=== PATIENT | male | born 2000 | race Two or more races ===

== ENCOUNTER 2023-04-17 17:56 | Inpatient (IN) | payer MEDICAID, OTHER ==
[~2023-04-17] VITALS: Ht 188 cm; Wt 134.7 kg
[2023-04-17 19:24] LABS: BASOPHILS % (AUTO) 0.4 % (0.0-2.0); EOSINOPHILS % (AUTO) 0.3 % (1.0-6.0); HEMATOCRIT 43.6 % (41-53); HEMOGLOBIN 14.8 g/dL (13.5-17.5); LYMPHOCYTES # (AUTO) 2.2 K/uL (1.0-4.8); LYMPHOCYTES % (AUTO) 26.7 % (22.0-44.0); MEAN CORPUSCULAR HEMOGLOBIN 30.7 pg (26.0-34.0); MEAN CORPUSCULAR VOLUME 91 fL (80-100); MONOCYTES # (AUTO) 0.5 K/uL (0.1-1.0); MONOCYTES % (AUTO) 5.8 % (2.0-9.0); NEUTROPHILS # (AUTO) 5.5 K/uL (1.8-7.7); NEUTROPHILS % (AUTO) 66.8 % (40.0-70.0); PLATELET COUNT (AUTO) 314 K/uL (150-450); RED BLOOD CELL COUNT(AUTO) 4.81 MIL/uL (4.50-5.90); WHITE BLOOD COUNT (AUTO) 8.3 K/uL (4.5-11.0)
[2023-04-17 19:34] LABS: ANION GAP 10 mmol/L (8-16); CALCIUM, TOTAL 8.9 mg/dL (8.8-10.5); CARBON DIOXIDE 25 mmol/L (22-29); CHLORIDE 100 mmol/L (98-107); CREATININE 0.76 mg/dL (0.60-1.30); GLOMERULAR FILTR. RATE CALC > 60 mL/min (>60); GLUCOSE,RANDOM 104 mg/dL (70-110); POTASSIUM 3.7 mmol/L (3.5-5.1); SODIUM SERUM 135 mmol/L (136-145); UREA NITROGEN, BLOOD 11 mg/dL (7-18)
[2023-04-17 19:40] LABS: ALANINE AMINOTRANSFERASE 115 U/L (12-78); ALBUMIN 4.2 g/dL (3.4-5.0); ALKALINE PHOSPHATASE 78 U/L (46-116); ASPARTATE AMINOTRANSFERASE 28 U/L (15-37); BILIRUBIN,TOTAL 0.2 mg/dL (0.1-1.0); TOTAL PROTEIN, SERUM 8.1 g/dL (6.4-8.2)
[2023-04-17] MEDS ORDERED: METO-408 PO (19:48)
[2023-04-17] MEDS ORDERED: AMLO-142 PO (19:48)
[2023-04-17] MEDS ORDERED: SIMV-46 PO (19:48)
[2023-04-17] MEDS ORDERED: PALI3TAB14 PO (19:48)
[2023-04-17] MEDS ORDERED: PALI39DI IM (19:48)
[2023-04-17 20:01] LABS: ALCOHOL, BLOOD (SERUM) < 3 mg/dL (0-10)
[2023-04-17 22:26] LABS: COVID AG,FIA SOURCE NASAL SWAB
[2023-04-17 22:46] LABS: SARS-COV2 (COVID) ANTIGEN,FIA Negative (Negative)
[2023-04-17] MEDS ORDERED: LORazepam 2 MG TABLET PO PRN (23:15)
[2023-04-17] MEDS ORDERED: HALOPERIDOL 5 MG TABLET PO PRN (23:15)
[2023-04-17] MEDS ORDERED: HALOPERIDOL 5 MG TABLET PO ONE (23:30)
[2023-04-17] MEDS ORDERED: LORazepam 2 MG TABLET PO ONE (23:30)
[2023-04-17] MEDS ORDERED: DiphenhydrAMINE HCL 25 MG CAPSULE PO ONE (23:30)
[2023-04-18 05:17] VITALS: BP 101/79; PULSE 79; RESP 18; TEMP 97.6; O2SAT 98
[2023-04-18] MEDS ORDERED: INFLUENZA VIRUS VACCINE QVS 2023-24 (6MO+)/PF 60 MCG/0.5 ML SYRINGE IM. ONE (06:15)
[2023-04-18] MEDS ORDERED: METOPROLOL SUCCINATE 25 MG ER TABLET PO SCH (09:00)
[2023-04-18] MEDS ORDERED: ACETAMINOPHEN 325 MG TABLET PO PRN (09:30)
[2023-04-18] MEDS ORDERED: NICOTINE 14 MG/24 HOUR PATCH TD PRN (09:30)
[2023-04-18] MEDS ORDERED: ONDANSETRON HCL 4 MG TABLET PO PRN (09:30)
[2023-04-18] MEDS ORDERED: GuaiFENesin/D-METHORPHAN [SUGAR-FREE] 200-20MG/10 ML SYRUP UDCUP PO PRN (09:30)
[2023-04-18] MEDS ORDERED: CloNIDine HCL 0.1 MG TABLET PO PRN (09:30)
[2023-04-18] MEDS ORDERED: DOCUSATE SODIUM 100 MG CAPSULE PO PRN (09:30)
[2023-04-18] MEDS ORDERED: LOPERAMIDE HCL 2 MG CAPSULE PO PRN (09:30)
[2023-04-18] MEDS ORDERED: PETROLATUM,WHITE 28 GM JELLY TP PRN (09:30)
[2023-04-18] MEDS ORDERED: ALBUTEROL SULFATE HFA 90 MCG/PUFF 8 GM INHALER IH PRN (09:30)
[2023-04-18] MEDS ORDERED: IBUPROFEN 400 MG TABLET PO PRN (09:30)
[2023-04-18] MEDS ORDERED: MAG HYDROX/ALUMINUM HYD/SIMETH ES 30 ML SUSPENSION UDCUP PO PRN (09:30)
[2023-04-18] MEDS ORDERED: MAGNESIUM HYDROXIDE SUSPENSION 30 ML UDCUP PO PRN (09:30)
[2023-04-18 14:20] LABS: APPEARANCE,URINE CLEAR (CLEAR); BILIRUBIN,URINE NEGATIVE (NEGATIVE); COLOR,URINE LIGHT YELLOW (YELLOW); GLUCOSE, URINE (UA) NEGATIVE (NEGATIVE); KETONES,URINE NEGATIVE (NEGATIVE); LEUKOCYTE ESTERASE ,URINE NEGATIVE (NEGATIVE); NITRATE,URINE NEGATIVE (NEGATIVE); OCCULT BLOOD,URINE NEGATIVE (NEGATIVE); PH,URINE 6.5 (5.0-8.0); PH,URINE DRUG SCREEN 6.5 (5.0-8.0); PROTEIN,URINE NEGATIVE (NEGATIVE); SPECIFIC GRAVITIY, URINE 1.026 (1.003-1.030); UROBILINOGEN,URINE <=1.0 mg/dL (<=1.0)
[2023-04-18 14:27] VITALS: BP 120/88; PULSE 83; RESP 18; TEMP 98.1; O2SAT 98
[2023-04-18 14:28] LABS: ALCOHOL, URINE DRUG SCREEN NEGATIVE (NEGATIVE); AMPHET/METH SCREEN,URINE NEGATIVE (NEGATIVE); BARBITURATE SCREEN, URINE NEGATIVE (NEGATIVE); BENZODIAZEPINES SCREEN,URINE NEGATIVE (NEGATIVE); CANNABINOID SCREEN,URINE NEGATIVE (NEGATIVE); COCAINE SCREEN,URINE NEGATIVE (NEGATIVE); METHADONE SCREEN, URINE NEGATIVE (NEGATIVE); OPIATE SCREEN,URINE NEGATIVE (NEGATIVE); PHENCYCLIDINE SCREEN,URINE NEGATIVE (NEGATIVE)
[2023-04-18] MEDS: PALIPERIDONE 3 MG ER TABLET PO SCH ×2 (15:30→15:32)
[2023-04-18] MEDS ORDERED: SEMA0.258 SQ (18:53)
[2023-04-18] MEDS ORDERED: CHOL25TA4 PO (18:53)
[2023-04-18] MEDS ORDERED: KETO120S13 TP (18:53)
[2023-04-18] MEDS ORDERED: PALI39DI IM (18:53)
[2023-04-18] MEDS ORDERED: PALI6TAB15 PO (18:53)
[2023-04-18] MEDS ORDERED: TACR30OI5 TP (18:53)
[2023-04-18] MEDS ORDERED: KETO15CR2 TP (18:53)
[2023-04-18] MEDS: SIMVASTATIN 40 MG TABLET PO SCH (20:57)
[2023-04-18] MEDS: ZOLPIDEM TARTRATE 10 MG TABLET PO PRN (20:57)
[2023-04-18] MEDS ORDERED: SIMVASTATIN 40 MG TABLET PO SCH (21:00)
[2023-04-18 22:36] VITALS: RESP 18
[2023-04-19 06:27] LABS: HEMOGLOBIN A1C 5.3 % (3.8-5.6)
[2023-04-19 07:15] LABS: CHOL/HDL RATIO 4.8 (4.2-7.3); THYROID STIMULATING HORMONE 1.12 uIU/mL (0.36-3.74)
[2023-04-19] MEDS: PALIPERIDONE 6 MG ER TABLET PO SCH (08:05)
[2023-04-19] MEDS: BENAZEPRIL HCL 20 MG TABLET PO SCH (08:05)
[2023-04-19] MEDS: AmLODIPine BESYLATE 10 MG TABLET PO SCH (08:05)
[2023-04-19 08:15] VITALS: BP 173/106; PULSE 95; RESP 18; TEMP 98; O2SAT 95
[2023-04-19] MEDS ORDERED: METOPROLOL SUCCINATE 25 MG ER TABLET PO SCH (09:00)
[2023-04-19 10:17] VITALS: BP 118/65; PULSE 70; RESP 18
[2023-04-19] MEDS: ZOLPIDEM TARTRATE 10 MG TABLET PO PRN (20:10)
[2023-04-19] MEDS: SIMVASTATIN 40 MG TABLET PO SCH (20:10)
[2023-04-19 20:22] VITALS: BP 120/76; PULSE 100; RESP 18
[2023-04-20 08:14] VITALS: BP 136/79; PULSE 72; RESP 18; TEMP 97.6
[2023-04-20] MEDS: PALIPERIDONE 6 MG ER TABLET PO SCH (08:17)
[2023-04-20] MEDS: AmLODIPine BESYLATE 10 MG TABLET PO SCH (08:17)
[2023-04-20] MEDS: BENAZEPRIL HCL 20 MG TABLET PO SCH (08:18)
[2023-04-20] MEDS: SIMVASTATIN 40 MG TABLET PO SCH (20:42)
[2023-04-20] MEDS: ZOLPIDEM TARTRATE 10 MG TABLET PO PRN (20:42)
[2023-04-20 20:59] VITALS: RESP 19
[2023-04-21] MEDS: AmLODIPine BESYLATE 10 MG TABLET PO SCH (08:29)
[2023-04-21] MEDS: PALIPERIDONE 6 MG ER TABLET PO SCH (08:29)
[2023-04-21] MEDS: BENAZEPRIL HCL 20 MG TABLET PO SCH (08:29)
[2023-04-21 09:21] VITALS: BP 132/87; PULSE 75; RESP 18; TEMP 97.9; O2SAT 98
[2023-04-21] MEDS ORDERED: BENZOCAINE/MENTHOL LOZENGE PO PRN (11:15)
[2023-04-21] MEDS: SIMVASTATIN 40 MG TABLET PO SCH (20:56)
[2023-04-21] MEDS: ZOLPIDEM TARTRATE 10 MG TABLET PO PRN (20:56)
[2023-04-22 08:40] VITALS: BP 143/84; PULSE 100; RESP 18; TEMP 97.6; O2SAT 100
[2023-04-22] MEDS: AmLODIPine BESYLATE 10 MG TABLET PO SCH (08:55)
[2023-04-22] MEDS: BENAZEPRIL HCL 20 MG TABLET PO SCH (08:56)
[2023-04-22] MEDS: PALIPERIDONE 6 MG ER TABLET PO SCH (08:57)
[2023-04-22] MEDS: SIMVASTATIN 40 MG TABLET PO SCH (20:26)
[2023-04-22 20:59] VITALS: RESP 18
[2023-04-23] MEDS: AmLODIPine BESYLATE 10 MG TABLET PO SCH (08:58)
[2023-04-23] MEDS: BENAZEPRIL HCL 20 MG TABLET PO SCH (08:58)
[2023-04-23] MEDS: PALIPERIDONE 6 MG ER TABLET PO SCH (08:58)
[2023-04-23 09:00] VITALS: BP 126/75; PULSE 85; RESP 18; TEMP 98.5; O2SAT 96
[2023-04-23] MEDS ORDERED: PALIPERIDONE PALMITATE 234 MG/1.5 ML SYRINGE IM ONE (10:00)
[2023-04-23] MEDS ORDERED: PALI234D IM (16:17)
[2023-04-23] MEDS ORDERED: AMLO-258 PO (16:18)
== END 2023-04-23 16:45 | disposition home or self-care (01) | DRG 750 ==
LOC: EMS 17:59 → 3EC 04-18 03:31
PROVIDERS: ADMIT Psychiatry & Neurology Psychiatry; ATTEND Psychiatry & Neurology Psychiatry
DX: F25.0 Schizoaffective disorder, bipolar type (principal); E55.9 Vitamin D deficiency, unspecified; Z20.822 Contact with and (suspected) exposure to COVID-19; E78.5 Hyperlipidemia, unspecified; F84.0 Autistic disorder; I10 Essential (primary) hypertension; Z79.899 Other long term (current) drug therapy
CPT/HCPCS: 80053; 80061; 80307; 81003; 83036; 84443; 85025; 99291; G0480